=== PATIENT | male | born 1980 | race Caucasian/White ===

== ENCOUNTER 2025-04-12 16:14 | Outpatient (CLI) | payer OTHER, SELFPAY | END 2025-04-12 16:15 | disposition home or self-care (01) | LOC: AMB 04-27 11:09 | PROVIDERS: Visit Provider Emergency Medicine | DX: R45.851 Suicidal ideations (principal) | CPT/HCPCS: A0425; A0429 ==

== ENCOUNTER 2025-04-12 17:15 | Emergency (ER) | payer OTHER, SELFPAY ==
[2025-04-12] VITALS (32 sets, daily range): BP systolic 116–142; BP diastolic 70–97; PULSE 75–89; RESP 14–24; TEMP 36.3; O2SAT 93–99; BMI 23.7
[2025-04-12] MEDS: OLANZapine 5 MG/ML inj 10 MG IM (17:32)
--- NOTE | 2025-04-12 18:14 | ED_ITS ---
HPI - General Adult General Date Seen: 04/12/25 Chief complaint: Psychiatric Problem/Disorder Stated complaint: Mental Health & Overdose Time Seen by Provider: 04/12/25 18:00 History of Present Illness HPI narrative: 44-year-old male brought to the ER today by EMS in 4 point restraints. History from paramedics is that they were called to his seen by [facility] police. Patient had apparently been cyst making suicidal comments. He had apparently drank half a bottle of vodka and taken up to 30 Xanax 1 mg tablets. He tried to run away from police so required handcuff restraints and the patient did run into a wet swampy area near the [facility]. He was soaked with water and wet. However he was uncooperative, cussing and swearing at paramedics. He was never physically violent did not try to hurt anyone but they did place him in restraints because he had significant concerned that he would become violent during transport. They were not able to get a full set of vitals. They were not able to get a blood sugar. History is limited from the patient. I encountered the patient 1st as he is offloading from the ambulance in the ER ambulance garage. He looks at me and snears and says, ?what you looking at? Fuck you!? We accompanied the patient with paramedics back to ER room 2. Once there he remains defiant and sometimes cussing. He is not violent or trying to hurt anyone. He is perseverating and counting 1 of the paramedics. He is asking over and over again where his backpack is and where ?half my stuff? is. He also accuses the paramedics for of taking all the Xanax out of his bottle. He then accuses them of keeping the Xanax for themselves. He says, ?you are going to have a good night tonight with your , taking all that Xanax. ? When I mention to the patient that he looks wet and cold he is very defiant and if dismissive and says that he has not. He is not really cooperating with the conversation. He then accuses the officers in [place] of stealing his b elongings. He is not violent but he is absolutely not cooperating with history and physical. He is not really answering questions or following requests an commands When I ask him what I can do to help him be more comfortable he says that he just wants to leave the ER. When I tell him that he cannot leave right now until we make sure that he is medically and psychiatrically stable he says, ?I a m just gonna do it (meaning- kill kill himself) as soon as I get out of here.? I did receive additional history by phone from officer Ryder of the [place] police department. The transit authority police officer indicates that he 1st encounter the patient today after there was a please call for an intoxicated male in the [place]. The officer encountered the patient in his vehicle near the cemetery. He was intoxicated and trying to drive away and then run away. The officer had to darius him and physically restrain him from running and driving. The patient was not physicall y aggressive toward the officer and there are no legal charges pending against the patient from that altercation. The patient stated taking half a bottle of Xanax and half a bottle of vodka got to the officer. Also the officer indicates there might have been damage to some grave stones in the cemetery (they were kicked over). Apparently, after bringing the patient into custody the officer discovered that there was a welfare request from [place] police department. Officer geoff of [place] please gives me contact information for officer Jimbo of [place] police department. History by phone from officer Jimbo ([phone]) is that the patient's girlfriend Hailey Morocho ([phone]) had called police this morning. She reported that the patient had been talking for a couple of days about suicide in saying that he was tired of feeling this way and that he was planning eat and his life. The patient had been doing Google searches about means of suicide. The patient had told Hailey last night that he had chosen a place to do it and then he was very comfortable with his decision and wanted her to be comfortable with too. This morning the patient told his girlfriend that he was going to go to [facility] more time with his mother and then after that he was going to commit suicide. Hailey, had contacted his sister Verónica this morning. The patient's sister, Verónica, had tried to confront him at [facility] this morning but he apparently drove off at a high rate of speed. That was what led to the welfare request. History by phone from the patient's girlfriend Hailey ([phone]). The patient had been talking for 2 or 3 days about ending his life. He had apparently made a decision that he did want to live anymore. He was telling her what to do with his belongings. Specifically he wanted most of his belongings to go to his 19-year-old daughter. He had been good going suicide attempts and determined that he had the right amount of Xanax to take to make sure the end his life. He told his girlfriend that he had chosen a spot to do it. He was planning to commit suicide today after going to [facility] 1 more time with his mother. His girlfriend, Hailey is able to tell me he does have a psychiatrist, Darius Abraham at [facility] in [place]. Related Data Home Medications ?Medication ?Instructions ?Recorded ?Confirmed alprazolam 1 mg tablet (Xanax) 1 mg PO BID 04/12/25 Allergies Allergy/AdvReac Type Severity Reaction Status Date / Time No Known Drug Allergies Allergy Verified 04/12/25 18:47 PFSH PFS Social History Smoking Status: Unknown if ever smoked Exam Narrative: Exam Narrative: Constitutional: Appears well-developed and well-nourished. Alert. He is in 4 point restraints by EMS. He is profane and uncooperative. He is wet and all of his clothes are wet. His skin is covered in green algae from the swampy had run into. He has mud under his socks after we get him disrobed. HENT: Head: Atraumatic. Nose: Nose normal. Mouth/Throat: Oral mucosa is clear and moist. no trismus. No trismus. Not cooperate for pharyngeal exam. Eyes: Conjunctivae are bloodshot bilaterally. EOM normal. Pupils equal, round, and reactive to light. No scleral icterus. Neck: Normal range of motion. Neck supple. No tracheal deviation present. Cardiovascular: Normal rate, regular rhythm. No gallop. No friction rub. No murmur heard. Symmetric radial artery pulses Pulmonary/Chest: Effort normal. No stridor. No respiratory distress. No wheezes. No rales. No rhonchi . He does have pectus excavatum of his lower sternum No tenderness. Abdominal: Soft. Bowel sounds normal. No distension. No mass. No tenderness. No rebound. No guarding. Musculoskeletal: RUE: Normal range of motion. No tenderness. No deformity LUE: Normal range of motion. No tenderness. No deformity RLE: Normal range of motion. No edema. No tenderness. No deformity LLE: Normal range of motion. No edema. No tenderness. No deformity Neurological: He is alert and oriented to person but will not answer questions about place and date. He has no focal deficits. He is moving both arms and both legs purposefully. Speech is slightly slurred from alcohol intoxication but no facial droop. Skin: Skin is warm and dry. No rash noted. No pallor. Normal capillary refill. Psychiatric: He seems intoxicated. Multiple individuals report that he has had several days of suicidal ideation with specific planning, Internet searching and significant effort chosen into his means and location and timing of his suicide attempt. Officers, girlfriend, and family members believe he was planning to commit suicide by overdose today in the [facility] or use a cemetery in [place]. His girlfriend, Hailey is able to tell me he does have a psychiatrist, Darius Abraham at [facility] in [place]. Const: Vital Signs, click to edit/add: Vital Signs - 24 hr 04/12/25 17:20 04/12/25 18:05 04/12/25 18:16 Temperature 97.4 F L Pulse Rate 75 Pulse Rate [Pulse Oximeter] 83 Respiratory Rate 14 16 Blood Pressure Blood Pressure [Ri ght Upper Arm] 142/97 H Pulse Oximetry 99 95 96 Oxygen Delivery Me thod Room Air 04/12/25 18:31 04/12/25 18:45 04/12/25 19:01 Temperature Pulse Rate 78 78 79 Pulse Rate [Pulse Oximeter] Respiratory Rate 16 17 17 Blood Pressure 134/71 128/70 Blood Pressure [Ri ght Upper Arm] Pulse Oximetry 93 96 94 Oxygen Delivery Me thod 04/12/25 19:15 04/12/25 19:31 04/12/25 19:45 Temperature Pulse Rate 76 79 80 Pulse Rate [Pulse Oximeter] Respiratory Rate 17 17 18 Blood Pressure 125/74 Blood Pressure [Ri t Upper Arm] Pulse Oximetry 95 96 97 Oxygen Delivery Me thod 04/12/25 20:01 04/12/25 20:15 04/12/25 20:30 Temperature Pulse Rate 79 82 Pulse Rate [Pulse Oximeter] Respiratory Rate 17 19 24 Blood Pressure 129/71 Blood Pressure [Ri ght Upper Arm] Pulse Oximetry 96 97 Oxygen Delivery Me thod 04/12/25 20:30 Temperature Pulse Rate 81 Pulse Rate [Pulse Oximeter] Respiratory Rate 19 Blood Pressure Blood Pressure [Ri ght Upper Arm] Pulse Oximetry 96 Oxygen Delivery Me thod Course Course ED Course: Patient arrived in 4 point restraints by EMS and was brought to ER room 2. We did have security an [place] Police present due to the risk of physical violence an escalation. He was profane and uncooperative in restraints. Neither myself nor nursing staff felt comfortable taking him out of restraints due to the high risk that he would try to elope and or become physically aggressive to ER staff. He was uncooperative and perseverating about not finding his belongings. He profanely refused offered oral Zyprexa. We did do a brief physical hold for medication administration with an IM injection of 10 mg of Zyprexa into his left deltoid. After a few minutes he was calming. We were able to get him out of restraints, get him out of his soaking wet muddy algae filled clothes and get him changed into dry scrubs. We were able to transfer him from the EMS gurney onto the ER bed. At this point he was sleeping more calmly but still arousable. We felt comfortable keeping out of restraints at this point. Blood sugar was 92. I was able to do a better physical exam and I do not see any signs of bruising or trauma on his head, neck, torso, back. Additional history from officer [place] [employer], Officer Jimbo, [place] police, from his girlfriend, Hailey. Patient was placed on a 72 hour hold I ordered laboratory workup for medical clearance anticipating that he will cert ainly need inpatient mental health admission. Vital Signs Vital signs: Initial Vital Signs Temperature 97.4 F L 04/12/25 17:20 Temperature Source Axillary 04/12/25 17:20 Pulse Rate 83 04/12/25 17:20 Respiratory Rate 14 04/12/25 17:20 Blood Pressure 142/97 H 04/12/25 17:20 Blood Pressure Mean 112 H 04/12/25 17:20 Blood Pressure Position Sitting 04/12/25 17:20 Pulse Oximetry 99 04/12/25 17:20 Oxygen Delivery Method Room Air 04/12/25 17:20 Vital Signs Temperature 97.4 F L 04/12/25 17:20 Pulse Rate 83 04/12/25 17:20 Respiratory Rate 14 04/12/25 17:20 Blood Pressure 142/97 H 04/12/25 17:20 Pulse Oximetry 99 04/12/25 17:20 Oxygen Delivery Method Room Air 04/12/25 17:20 Temperature 97.4 F L 04/12/25 17:20 Pulse Rate 81 04/12/25 20:30 Respiratory Rate 19 04/12/25 20:30 Blood Pressure 129/71 04/12/25 20:01 Pulse Oximetry 96 04/12/25 20:30 Oxygen Delivery Method Room Air 04/12/25 17:20 Medications Administered Medications: Discontinued Medications Generic Name Dose Route Start Last Admin Trade Name Mamadou PRN Reason Stop Dose Admin Olanzapine 10 mg 04/12/25 18:09 04/12/25 17:32 Olanzapine 5 Mg/Ml Inj IM 04/12/25 18:10 10 mg ONCE ONE Administration Medical Decision Making MDM Narrative Medical decision making narrative: 44-year-old male presenting to the ER today in 4 point restraints by EMS. He had initially been encountered by [facility] today. He was intoxicated with alcohol, uncooperative pull is (but not physically attacking them). He has been reporting suicidal ideation and researching on the Internet, making plans and making preparations for his belongings for the past 3 days. Family members report high concern for active suicidal ideation and are convinced that he would have killed himself today had he not been encountered by the transit authority police officer. When he arrived he was profane, uncooperative but not violent. He did require Zyprexa to keep him some self calm so he would not become violent with staff. We were able to get him out of restraints and he is now sleeping in his bed. He was placed on a 72 hour hold. He indicated to me (and to his nursing staff) that he was going to kill himself as soon he is he got out of the ER. Laboratory workup shows an alcohol level lower than we would expect at 0.03. Urine drug screen is positive for benzos and meth. He did report that he had taken quite a lot of Xanax prior to arrival. At this point he is breathing easily, maintaining saturations on room air and protecting his own airway. He was initially wet and covered in mud and allergy from running into a small. We were able to get him out of his wet clothes. He did not have life- threatening hypothermia and body temperature was 97.4?. He has been changed dry clothes and is now resting in the ER. Other laboratory workup shows normal kidney function. Normal LFTs safe for AST of 37. Normal TSH. Urinalysis is normal. No sign of infection. Salicylate and Tylenol levels are undetectable. COVID is negative. I do notice white count of 14 which is nonspecific. No clear infection symptoms at this point. He is not febrile and temperature is 97.4?. At this point, with reasonable clinical confidence I think the patient is medically clear for mental health admission safe for he still somnolent after his benzo overdose, alcohol consumption, and IM Zyprexa. He continues to be hemodynamically stable and oxygenating normally on room air. No signs of respiratory depression, loss of airway protective reflexes or other indication for intubation. Blood pressure remained stable I have met with the patient's mother and sister, it is bedside (they came here couple hours after arrival). They agree that the he is high risk for suicide and they are concerned that he was close to completing his attempt today for he was interrupted by police. Discussed with my partner, Dr. Vega at 9:15 p.m.. He will assume care of this patient on the overnight shift. Once the patient is alert enough to be assessed by [facility], will need psychiatric assessment and then begin the process for mental health placement. Lab Data Labs: Lab Results 04/12/25 04/12/25 04/12/25 Range/Units 18:05 18:10 18:16 WBC 14.33 H (4.50-11.00) K/uL RBC 5.31 (4.30-5.90) m/uL Hgb 16.9 (13.5-17.5) gm/dL Hct 48.1 (37.0-53.0) % MCV 91 (80-100) fL MCH 32 (26-34) pg MCHC 35 (32-36) gm/dL RDW Coeff of [place] 11.9 (11.5-15.5) % Plt Count 271 (140-440) K/uL Neut % (Auto) 87.2 H (42.0-72.0) % Lymph % (Auto) 7.0 L (20-44) % Eddy % (Auto) 4.5 (0.0-11.0) % Eos % (Auto) 0.1 (0.0-7.0) % Baso % (Auto) 0.1 (0.0-3.0) % Neut # (Auto) 12.50 H (1.7-7.0) K/uL Lymph # (Auto) 1.00 (0.90-2.90) K/uL Eddy # (Auto) 0.60 (0.00-0.90) K/UL Eos # (Auto) 0.00 (0.00-0.50) K/uL Baso # (Auto) 0.00 (0.00-0.30) K/uL Abs Immat Gran (auto) 0.20 (0.00-0.30) K/uL Imm/Tot Granulo (auto) 1.1 % Sodium 136 (135-149) mmol/L Potassium 4.0 (3.6-5.1) mmol/L Chloride 96 (96-114) mmol/L Carbon Dioxide 29 (20-32) mmol/L Anion Gap 11 (7-15) mEq/L BUN 9 (5-24) mg/dL Creatinine 0.9 (0.5-1.5) mg/dL Estimated GFR 108 ml/min Glucose 82 (60-115) mg/dL Calcium 9.3 (8.4-10.6) mg/dL Total Bilirubin 0.8 (0.1-1.5) mg/dL AST 37 H (12-35) U/L ALT 28 (4-50) U/L Alkaline Phosphatase 65 (40-150) U/L Total Protein 7.8 (6.0-8.3) g/dL Albumin 4.6 (3.3-5.0) g/dL TSH 0.688 (0.270-4.200) uIU/mL Urine Color Yellow (Yellow) Urine Appearance Clear (Clear) Urine pH 5.5 (5.0-8.5) Ur Specific [place] 1.015 (1.000-1.030) Urine Protein Trace A (Negative) Urine Glucose (UA) Negative (Negative) Urine Ketones Negative (Negative) Urine Blood Negative (Negative) Urine Nitrite Negative (Negative) Urine Bilirubin Negative (Negative) Urine Urobilinogen 0.2 (0.2-1.0) Ur Leukocyte Esterase Negative (Negative) Urine RBC 0-2 (0-2) Urine WBC 0-2 (0-5) Ur Squamous Epith Cells Few (None-Few) Urine Bacteria None (None) Salicylates < 1.0 L (1.0-10) mg/dL Urine Opiates Screen Negative (Negative) Ur Oxycodone Screen Negative (Negative) Urine Methadone Screen Negative (Negative) Acetaminophen < 10.0 (10.0-30.0) ug/mL Ur Barbiturates Screen Negative (Negative) U Tricyclic Antidepress Negative (Negative) Ur Phencyclidine Scrn Negative (Negative) Ur Amphetamines Screen Negative (Negative) U Methamphetamines Scrn POSITIVE A (Negative) U Benzodiazepines Scrn POSITIVE A (Negative) Urine Cocaine Screen Negative (Negative) U Marijuana (THC) Screen Negative (Negative) Ur Drug Screen Comment See Note Ethyl Alcohol 0.03 (0.01-0.03) % SARS-CoV-2 (PCR) Negative SARS-CoV-2 (Negative) POC Glucose 92 (60-115) mg/dl ECG Data Attestation: I personally reviewed and interpreted this ECG as follows: Interpretation: NSR Rate 72 OK 190 Normal QRS axis No ST segement elevation or depression QT 376 QTc 411 Discharge Plan Discharge Prescriptions: No Action alprazolam [Xanax] 1 mg tablet 1 mg PO BID
[2025-04-12 18:22] LABS: Glucose, Point-of-Care* 92 mg/dl (60-115)
[2025-04-12 18:25] LABS: Appearance Urine Clear (Clear)
[2025-04-12 18:32] LABS: Hematocrit* 48.1 % (37.0-53.0); Hemoglobin* 16.9 gm/dL (13.5-17.5); Immature Granulocytes Pct Auto 1.1 %; Mean Corpuscular HGB Conc 35 gm/dL (32-36); Mean Corpuscular Hemoglobin 32 pg (26-34); Mean Corpuscular Volume 91 fL (80-100); RDW Coefficient of Variation % 11.9 % (11.5-15.5); Red Blood Count* 5.31 m/uL (4.30-5.90); White Blood Count* 14.33 K/uL (4.50-11.00)
[2025-04-12 18:35] LABS: Cannabinoid Screen Urine Negative (Negative); Methamphetamines Screen Urine POSITIVE (Negative); Tricyclic Antidepressant Urine Negative (Negative)
[2025-04-12 18:35] LABS: Albumin* 4.6 g/dL (3.3-5.0); Chloride* 96 mmol/L (96-114); Potassium* 4.0 mmol/L (3.6-5.1); Sodium* 136 mmol/L (135-149)
[2025-04-12 18:37] LABS: Blood Urea Nitrogen* 9 mg/dL (5-24); Creatinine* 0.9 mg/dL (0.5-1.5); Estimated Glomerular Filt Rate 108 ml/min
[2025-04-12 18:38] LABS: Alanine Aminotransferase* 28 U/L (4-50); Alkaline Phosphatase* 65 U/L (40-150); Anion Gap 11 mEq/L (7-15); Aspartate Amino Transferase* 37 U/L (12-35); Bilirubin Total* 0.8 mg/dL (0.1-1.5); Calcium* 9.3 mg/dL (8.4-10.6); Carbon Dioxide* 29 mmol/L (20-32); Ethanol* 0.03 % (0.01-0.03); Glucose* 82 mg/dL (60-115); Total Protein* 7.8 g/dL (6.0-8.3)
[2025-04-12 18:41] LABS: Acetaminophen* < 10.0 ug/mL (10.0-30.0); Salicylate* < 1.0 mg/dL (1.0-10)
[2025-04-12 18:50] LABS: Immature Granulocytes Abs Auto 0.20 K/uL (0.00-0.30); Lymphocytes Absolute Auto 1.00 K/uL (0.90-2.90); Slide Review Reflex No
[2025-04-12 19:00] LABS: SARS PCR* Negative SARS-CoV-2 (Negative)
[2025-04-12 19:09] LABS: TSH With Reflex to FT4* 0.688 uIU/mL (0.270-4.200)
--- OUTSIDE RECORDS SUMMARY | 2025-04-12 20:48 | XMS_ITS | Clinical Summary ---
Author Organization [facility] Address [address] [place] [address] Care Team Providers Care Machine Assembler Supervisor Name Role Phone Bobby Sol MD Primary Care Provider [phone] Source Comments You are receiving this document as you are listed as the primary care provider,follow-up provider, or the patient has been referred to you for consultation.This is in compliance with the Medicare andThe [facility] EHR Incentive Program,which states Providers who transition their patient to another setting of careor provider of care or refers their patient to another provider of care shouldprovide summary care record for each transition of care or referral. [facility] Allergies No known active allergies Medications nicotine (NICORETTE) 2 MG gum Take 1 Each (2 mg) by mouth every 1 hour as needed for Smoking Cessation. Chew 1 piece every 1-2 hours (minimum of 9 per day) for 6 weeks. Then 1 every 2-4 hours for 3 weeks, then 1 every 4-8 hours for 3 weeks Active SYRINGE-NEEDLE, DISP, 3 ML 18G X 1-1/2 3 MLIndications:Lo w testosterone in male Use to draw up medication only. Do not use to self-inject the medication 50 Each 08/09/19 24 Active Needle, Disp, (HYPODERMIC NEEDLE 23GX1) 23G X 1Indications:Lo w testosterone in male Use to inject IM testosterone 50 Each 08/09/19 24 Active ADDERALL 10 MG tablet Take 1 Tablet (10 mg) by mouth two times a day. 10/25/19 24 Active testosterone cypionate (DEPO-TESTOSTERO NE) 200 MG/ML injectionIndicat ions:Low testosterone in male Inject 0.5 mL (100 mg) intramuscularly every 14 days. 2 mL 5 11/22/19 24 Active sildenafil (REVATIO) 20 MG tabletIndication s:Erectile dysfunction, unspecified erectile dysfunction type TAKE 1 TO 2 TABLETS BY MOUTH FOR SEXUAL ACTIVITY NEEDED DIRECTED 60 Tablet 2 03/04/20 24 Active Active Problems Problem Noted Date Diagnosed Date Left varicocele 07/31/2022 Overview (07/31/2022): Noted on testicular US Overweight 2022 Overview (07/31/2022): BMI 27, A1C 5.3% 07/2022 Mixed hyperlipidemia 2022 Overview (10/29/2022): Lipid panel 10/2022 chol 193, HDL 59, LDL 113, tri 106 Hormone replacement therapy 2022 Overview (03/08/2023): Is on testosterone OTC from a friend, testosterone level 07/2022 is > 1600 and is to high to measure and needs to lower dose/stop OTC supplementation, and CBC and CMP WNL, encouraged to see endo but wants to hold off, repeat testosterone 02/2023 890 still elevated, PSA 02/2023 0.6 and CBC 02/2023 WNL Tobacco use 07/07/2021 Overview (2022): Intermittently smokes, chews daily Erectile dysfunction 07/07/2021 Overview (10/29/2022): Used to use viagra but now on testosterone and resolved, testosterone 10/2022 elevated and needs to lower dose Recurrent major depression 03/24/2012 Overview (2022): Was on prozac and now better H/O undescended testicle 03/24/2012 Overview (01/20/2016): Left, surgically repaired , c.age 5 Anxiety state 03/23/2008 Overview (2022): Was on prozac and now off, doing well Resolved Problems Problem Noted Date Diagnosed Date Resolved Date Psychosexual dysfunction wit h inhibited sexual excitement 05/03/2012 11/24/2019 Hypoactive sexual desire disorder 05/03/2012 11/24/2019 ASHELY (generalized anxiety disorder) 03/27/2012 11/24/2019 Social anxiety disorder 03/27/201201/2020 Performance anxiety 03/27/2012 11/24/19 20 Mood disorder in conditions classified elsewhere 03/25/2012 11/24/2019 Polysubstance abuse 03/24/2012 11/24/19 20 Immunizations Immunization Administration Dates Next Due Flu Vac Preserv Free (3+yrs) 04/03/2017 HepB Ped/Adol (0-18 yrs) 04/10/1997,09/23/1996,0 07/11/1996 Influenza IIV4 (Quadrivalent) 0.5mL (93613) 03/18,05/28/2018 Pfizer Monovalent 12+ Purple Top 12/29/2020,11/17 TDAP (BOOSTRIX) 10/07/2013 Tdap 10/17/2013 Family History Medical History Relation Name Comments Cancer Father stomach HTN Mother No Known Problems Sister Relation Name Status Comments Father Alive Mother Alive Maternal Grandfather Maternal Grandmother Paternal Grandfather Paternal Grandmother Sister Social History Tobacco Use Types Packs/Day Years Used Date Smoking Tobacco: Some Days Cigarettes Started: 03/18/2001; Last attempted to quit: 03/18/2015 Smokeless Tobacco: Current Chew Tobacco Cessation:Ready to Q uit: Yes; Counseling Given: Not Answered Comments:Working on quitting uses nicotine pouches Alcohol Use Standard Drinks/Week Comments Yes 0 (1 standard drink = 0.6 oz pur e alcohol) occ. 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 Not on file Not on file Not on file Last Filed Vital Signs Vital Sign Reading Time Taken Comments Blood Pressure 116/53 11/22/2023 9:36 AM CDT Pulse 77 11/22/2023 9:36 AM CDT Temperature 36.7 C (98 F) 04/01/2017 10:43 AM CDT Respiratory Rate 16 10/23/2022 9:13 AM CDT Oxygen Saturation 99% 04/01/2017 10:43 AM CDT Inhaled Oxygen Concentration - - Weight 81.6 kg (180 lb) 11/22/2023 9:36 AM CDT Height 180.3 cm (5' 11) 11/22/2023 9:36 AM CDT Body Mass Index 25.1 11/22/2023 9:36 AM CDT Plan of Treatment Health Maintenance Due Date Last Done Comments Pneumococcal Vaccine (1 of 2 - PCV) 1999 HPV Vaccine (1 - 3-dose SCDM series) 2007 DTaP/Tdap/Td Vaccine (3 - Tdap) 10/18/2023 10/17/2013, 10/07/2013 Adult Preventive Visit 2024 2022 COVID-19 Vaccine (3 - 2024-2 6 season) 2025 12/29/2020, 12/08/2020 Influenza Vaccine (#1) 2025 9, 05/28/2018, 04/03/2017 Cholesterol 10/24/2027 10/23/2022, 03/01/2022 Zoster/Shingles Vaccine (1 o f 2) 2030 HepB Vaccine Completed 04/10/1997, 09/23/1996, 07/11/1996 HIV Screening (Preventive Services) Completed 10/23/2022, 03/23/2008 Hep C Screening (Preventive Services) Completed 10/23/2022, 03/23/2008 HepA Vaccine Aged Out No longer eligi ble based on patient's age to complete this topic Hib Vaccine Aged Out No longer eligi ble based on patient's age to complete this topic IPV (Polio) Vaccine Aged Out No longe r eligible based on patient's age to complete this topic MCV4 Vaccine Aged Out No longer eligi ble based on patient's age to complete this topic Meningococcal B Vaccine Aged Out No l onger eligible based on patient's age to complete this topic Procedures Procedure Name Priority Date/Time Associated Diagnosis Comments HIV 1/2 AG/AB 4TH GEN Routine 10/23/2022 9:58 AM CDT Screen for STD (sexually transmitted disease) HEPATITIS PANEL ACUTE WITH REFLEX TO CONFIRMATION Routine 10/23/2022 9:58 AM CDT Screen for STD (sexually transmitted disease) LIPID PANEL & DIRECT LDL (IF NEEDED) Routine 10/23/2022 9:58 AM CDT Routine general medical examination at health care facility from Last 3 Months or Most Recently Relevant to Health Maintenance Results * Hepatitis Panel with Reflex to Confirmation (10/23/2022 9:58 AM CDT) Hepatitis A Antibody, IgM Negative (Non Reactive) Negative (Non Reactive) 10/23/2022 4:13 PM CDT [facility] Comment:IgM anti-HAV not det ected. Does not exclude the possibility of exposure to or infection with HAV. Levels of IgM anti-HAV may be below the cut-off in early infection. Hepatitis Bc Antibody,IgM Negative (Non Reactive) Negative (Non-Reacti ve) 10/23/2022 4:13 PM CDT [facility] Comment:IgM anti-HBc not det ected. Does not exclude the possibility of exposure to or infection with HBV. Hepatitis B Surface Antigen Negative (Non Reactive) Negative (Non Reactive) 10/23/2022 4:13 PM CDT [facility] Hepatitis C Antibody Negative (Non Reactive) Negative (Non Reactive) 10/23/2022 4:13 PM CDT [facility] Comment:Antibodies to HCV no t detected. Does not exclude the possiblity of exposure to HCV. Blood Venipuncture / Unknown 10/23/2022 9:58 AM CDT 10/23/2022 9:58 AM CDT Bobby Sol MD LAB_1 Final Result [facility] [address] [place], [place] [address] * HIV 1/2 Ag/Ab 4th Generation (10/23/2022 9:58 AM CDT) [facility] HIV 1/2 Antigen/Antib mary (4th generation) Negative (Non Reactive) Negative (Non Reactive) 10/23/2022 4:00 PM CDT [facility] Comment:HIV-1 p24 Antigen an d HIV-1/HIV-2 Antibody not detected Blood Venipuncture / Unknown 10/23/2022 9:58 AM CDT 10/23/2022 9:58 AM CDT Bobby Sol MD LAB_1 Final Result [facility] [address] [place], [place] [id number] [place] [address] * Lipid Panel (Expected: 30 days) (10/23/2022 9:58 AM CDT) [facility] Cholesterol 193 0 - 199 mg/dL 10/23/2022 12:46 PM CDT [facility] Triglyceride 106 <=149 mg/dL 10/23/2022 12:46 PM T [facility] HDL Cholesterol 59 >=40 mg/dL 12:46 PM T [facility] LDL, Calculated 113 <130 mg/dL 3 12:46 PM T [facility] Non HDL Chol, Calculated 134 <=159 mg/dL 10/23/2022 12:46 PM T [facility] Cholesterol/HDL Ratio 3.3 10/23/2022 12:46 PM T [facility] Hours Fasting 3 10/23/2022 12:46 PM T [facility] Blood Venipuncture / Unknown 10/23/2022 9:58 AM CDT 10/23/2022 9:58 AM CDT Bobby Sol MD LAB_1 Final Result [facility] [address] [place] [address], [facility] [phone] [facility] [address] [place] [address], [place] [phone] from Last 3 Months or Most Recently Relevant to Health Maintenance Insurance [facility] POONAM Srinivas Advance Directives * Full Code (Latest Code Status on File) Date Activated Date Inactivated Comments 03/24/2012 5:09 PM 03/25/2012 3:57 PM Care Teams Machine Assembler Supervisor Relationship Specialty Start Date End Date Bobby Sol MD [address] [place] [id number] PCP - General Family Practice 07/28/22
--- OUTSIDE RECORDS SUMMARY | 2025-04-12 20:48 | XMS_ITS | Clinical Summary ---
Author Organization [facility] Address [address] [place] [address] Care Team Providers Care Community Support Specialist Name Role Phone [facility] Allergies No known active allergies Medications LORazepam 1 mg tablet Take 1 Tablet by mouth two times daily. 5 Active vilazodone 20 mg tablet Take 1 Tablet by mouth once daily. 5 Active cyclobenzaprine (FLEXERIL) 10 mg tabletIndication s:Neck pain Take 1 Tablet (10 mg) by mouth every 8 hours if needed for Muscle Spasm. 15 Tablet 5 Active FLUoxetine (SARAFEM; RAPIFLUX) 20 mg tabletIndication s:Anxiety disorder, unspecified anxiety disorder type Take 1 tablet by mouth every morning. Half tablet oral daily for a week , then 1 oral daily 90 tablet 0 5 03/24/20 25 Discontinu ed(*Patien t states no longer taking) Active Problems Problem Noted Date Diagnosed Date Anxiety Chemical dependency Overview (08/04/2014): methadone Alcoholism Overview (08/04/2014): 2 DWI Encounters Date Type Department Care Team Description 03/24/2025 9:23 AM CDT - 03/24/2025 10:52 AM CDT Emergency [facility] [place] [address] [address] Nicolette Cain MD Neck pain (Primary Dx) Discharge Disposition: Home Self Care from Last 3 Months Family History Medical History Relation Name Comments Good Health Mother Relation Name Status Comments Mother Social History Tobacco Use Types Packs/Day Years Used Date Smoking Tobacco: Some Days Cigarettes Passive Smoke Exposure: Current Smokeless Tobacco: Current Snuff, Chew Tobacco Cessation:Ready to Q uit: Not Asked; Counseling Given: Not Answered Alcohol Use Standard Drinks/Week Comments No 0 (1 standard drink = 0.6 oz pur e alcohol) Sex and Gender Information Value Date Recorded Sex Assigned at Not on file Legal Sex Male 2:17 PM [employer] HOME IN[employer] Gender Identity Not on file Sexual Orientation Not on file Obstetrics History Last Filed Vital Signs Vital Sign Reading Time Taken Comments Blood Pressure 142/83 03/24/2025 9:32 AM CDT Pulse 79 03/24/2025 9:32 AM CDT Temperature 36.7 C (98 F) 03/24/2025 9:32 AM CDT Respiratory Rate 16 03/24/2025 9:32 AM CDT Oxygen Saturation 97% 03/24/2025 9:32 AM CDT Inhaled Oxygen Concentration - - Weight 81.6 kg (180 lb) 03/24/2025 9:32 AM CDT Height 182.9 cm (6') 03/24/2025 9:32 AM CDT Body Mass Index 24.41 03/24/2025 9:32 AM CDT Plan of Treatment Health Maintenance Due Date Last Done Comments Tetanus booster 1991 Depression screening for age 12+ 1992 HIV for age 15-65 1995 BMI (ht and wt on same day) for age 18+ 1998 Hepatitis C screening for age 18-79 1998 Hepatitis B series for 19+ (1 of 3 - 19+ 3-dose series ) 1999 Pneumococcal series for age 6-49 (1 of 2 - PCV) 1999 HPV series for age 9-45 (1 - 3-dose SCDM series) 07/28 Lipids for age 35-44 2015 Influenza Vaccine (#1) 2025 RSV vaccine for adults or pr egnancy (1 - 1-dose 75+ series) 2055 Procedures Procedure Name Priority Date/Time Associated Diagnosis Comments CT SPINE CERVICAL WO STAT 03/24/2025 10:02 AM CDT from Last 3 Months Results * CT SPINE CERVICAL WO (03/24/2025 10:02 AM CDT) Anatomical Region Laterality Modality CERVICAL SPINE, NECK, Spine Comp uted Tomography 03/24/2025 10:0 2 AM CDT Impressions 03/24/2025 10:12 AM CDT 1. No fracture or posttraumatic subluxation. 2. Degenerative changes in the cervical spine, most pronounced at C6-C7 where there is mild spinal canal narrowing and moderate bilateral neural foraminal narrowing. Narrative 03/24/2025 10:12 AM CDT For Patients: As a result of the Cures Act, medical imaging exams and procedure reports are released immediately into your electronic medical record. You may view this report before your referring provider. If you have questions, please contact your health care provider. EXAM: CT SPINE CERVICAL WO LOCATION: [facility] [place] DATE: 03/24/2025 INDICATION: Pain, limited range of motion. COMPARISON: None. TECHNIQUE: Routine CT Cervical Spine without IV contrast. Multiplanar reformats. Dose reduction techniques were used. FINDINGS: VERTEBRA: Cervical spine alignment is within normal limits. No acute lucent fracture lines. No significant loss of vertebral body height. Marked degenerative endplate changes and loss of disc height at C6-C7. Mild degenerative endplate changes and loss of disc height at the other levels. Small disc bulges at C4-5 and to a lesser extent C3-4 and C5-6. Facet hypertrophy at C7-T1. CANAL/FORAMINA: Mild spinal canal narrowing at C6-7. Moderate bilateral neural foraminal narrowing at C6-7. PARASPINAL: Polypoid mucosal thickening in the inferior left maxillary sinus. Procedure Note Glen Perez MD - 03/24/2025 For Patients: As a result of the Cures Act, medical imagingexams and procedure reports are released immediately into your electronicmedical record. You may view this report before your referring provider.If you have questions, please contact your health care provider. EXAM: CT SPINE CERVICAL WO LOCATION: [facility] [place] DATE: 03/24/2025 INDICATION: Pain, limited range of motion. COMPARISON: None. TECHNIQUE: Routine CT Cervical Spine without IV contrast. Multiplanarreformats. Dose reduction techniques were used. FINDINGS: VERTEBRA: Cervical spine alignment is within normal limits. No acutelucent fracture lines. No significant loss of vertebral body height.Marked degenerative endplate changes and loss of disc height at C6-C7.Mild degenerative endplate changes and loss of disc height at the otherlevels. Small disc bulges at C4-5 and to a lesser extent C3-4 and C5-6.Facet hypertrophy at C7-T1. CANAL/FORAMINA: Mild spinal canal narrowing at C6-7. Moderate bilateralneural foraminal narrowing at C6-7. PARASPINAL: Polypoid mucosal thickening in the inferior left maxillarysinus. IMPRESSION: 1. No fracture or posttraumatic subluxation. 2. Degenerative changes in the cervical spine, most pronounced at C6-P1ohcic there is mild spinal canal narrowing and moderate bilateral neuralforaminal narrowing. Nicolette Cain MD CT Final Resu lt from Last 3 Months Insurance MEDICAID [facility] [address] [id number] Care Teams Community Support Specialist Relationship Specialty Start Date End Date Nicole Manzano [facility] - [id number] [phone] PCP - General 07/10/21
[2025-04-13] VITALS (22 sets, daily range): BP systolic 118–139; BP diastolic 55–91; PULSE 77–107; RESP 15–23; TEMP 36.9–37.2; O2SAT 92–97
[2025-04-13] MEDS: NICOTINE 4 MG GUM BUCCAL (04:38)
[2025-04-13] MEDS: OLANZapine 5 MG/ML inj 10 MG IM (04:39)
== END 2025-04-13 10:22 ==
PROVIDERS: Emergency Provider Emergency Medicine
DX: R45.851 Suicidal ideations (principal); F10.129 Alcohol abuse with intoxication, unspecified; F32.9 Major depressive disorder, single episode, unspecified
CPT/HCPCS: 36415; 80053; 80143; 80179; 80306; 81001; 82077; 82947; 84443; 85025; 87635; 93005; 94761; 99284; 99285

== ENCOUNTER 2025-04-13 09:19 | Outpatient (CLI) | payer OTHER, SELFPAY | END 2025-04-13 09:20 | disposition home or self-care (01) | LOC: AMB 04-15 13:04 | PROVIDERS: Visit Provider Family Medicine | DX: R45.851 Suicidal ideations (principal) | CPT/HCPCS: A0425; A0428 ==